=== PATIENT | male | born 1950 | race Native Hawaiian/Other Pacific Islander ===

== ENCOUNTER 2016-12-02 06:36 | Outpatient (CLI) | payer OTHER, MEDICARE ==
[~2016-12-02 06:36] MED LIST: BENZONATATE200 MG PO; DIAZ5TAB20 PO; GABA300C2 PO; IBUP800T30 PO; KETOROLAC15 MG/ML IJ; LUNESTA3 MG OR; MEDROL DOSEPAK4 MG OR; [UNRECOGNIZED DRUG - CODE] PO
[2016-12-02 07:46] LABS: POTASSIUM 3.9 mmol/L (3.6-5.2)
== END 2016-12-02 19:00 | disposition home or self-care (01) ==
LOC: LABW 06:36
PROVIDERS: Internal Medicine
DX: N18.3 Chronic kidney disease, stage 3 (moderate) (principal)
CPT/HCPCS: 36415; 80069

== ENCOUNTER 2016-12-13 13:52 | Outpatient (CLI) | payer OTHER, MEDICARE | END 2016-12-13 19:05 | disposition home or self-care (01) | LOC: RAD 13:52 | DX: M25.552 Pain in left hip (principal); M25.551 Pain in right hip ==

== ENCOUNTER 2017-09-13 08:05 | Outpatient (CLI) | payer OTHER, MEDICARE ==
[2017-09-13 08:39] LABS: PLATELET COUNT 183 K/uL (142-355)
[2017-09-13 08:49] LABS: POTASSIUM 4.1 mmol/L (3.6-5.2)
== END 2017-09-13 22:09 | disposition home or self-care (01) ==
LOC: LABW 08:05
PROVIDERS: Internal Medicine
DX: Z00.00 Encounter for general adult medical examination without abnormal findings (principal); E78.00 Pure hypercholesterolemia, unspecified; I10 Essential (primary) hypertension; E55.9 Vitamin D deficiency, unspecified; Z12.5 Encounter for screening for malignant neoplasm of prostate
CPT/HCPCS: 36415; 80053; 80061; 82306; 84153; 84439; 84443; 85027

== ENCOUNTER 2017-11-10 22:22 | Emergency (ER) | payer OTHER, MEDICARE ==
[~2017-11-10] VITALS: Ht 177.8 cm; Wt 90.7 kg
[2017-11-10 23:28] LABS: PLATELET COUNT 190 K/uL (142-355)
[2017-11-10 23:35] LABS: POTASSIUM 3.5 mmol/L (3.6-5.2); SODIUM 141 mmol/L (136-145)
[2017-11-11 00:07] LABS: PARTIAL THROMBOPLASTIN TIME 25.6 SECONDS (24.5-33.6)
[2017-11-11 00:40] VITALS: BP 114/73; TEMP 98.6
== END 2017-11-11 00:40 | disposition home or self-care (01) ==
LOC: ED 22:22
DX: I10 Essential (primary) hypertension (principal); R10.13 Epigastric pain; Z98.890 Other specified postprocedural states
CPT/HCPCS: 36415; 74022; 80053; 82550; 82553; 84484; 85027; 85610; 85730; 93005; 99284

== ENCOUNTER 2018-01-11 09:54 | Outpatient (CLI) | payer OTHER, MEDICARE | END 2018-01-11 19:23 | disposition home or self-care (01) | LOC: RESP 09:54 | DX: R00.2 Palpitations (principal); R55 Syncope and collapse | CPT/HCPCS: 93225 ==

== ENCOUNTER 2018-04-13 10:11 | Outpatient (CLI) | payer OTHER, MEDICARE | END 2018-04-13 22:22 | disposition home or self-care (01) | LOC: RAD 10:11 | DX: M25.561 Pain in right knee (principal) ==

== ENCOUNTER 2019-02-22 08:44 | Outpatient (CLI) | payer OTHER, MEDICARE ==
[2019-02-22 09:46] LABS: PLATELET COUNT 176 K/uL (142-355)
[2019-02-22 10:50] LABS: POTASSIUM 4.5 mmol/L (3.6-5.2)
== END 2019-02-22 16:00 | disposition home or self-care (01) ==
LOC: LABW 08:44
PROVIDERS: Internal Medicine
DX: Z00.00 Encounter for general adult medical examination without abnormal findings (principal); I10 Essential (primary) hypertension; E78.00 Pure hypercholesterolemia, unspecified; Z12.5 Encounter for screening for malignant neoplasm of prostate; N40.0 Benign prostatic hyperplasia without lower urinary tract symptoms
CPT/HCPCS: 36415; 80053; 80061; 81000; 84153; 84439; 84443; 85027

== ENCOUNTER 2020-04-08 12:36 | Outpatient (CLI) | payer OTHER, MEDICARE | END 2020-04-08 19:40 | disposition home or self-care (01) | LOC: INF 12:36 | PROVIDERS: ATTEND Internal Medicine Endocrinology, Diabetes & Metabolism | DX: Z23 Encounter for immunization (principal) | CPT/HCPCS: 96372 ==

== ENCOUNTER 2020-05-05 09:28 | Outpatient (CLI) | payer OTHER, MEDICARE | END 2020-05-05 21:47 | disposition home or self-care (01) | LOC: INF 09:28 | PROVIDERS: ATTEND Internal Medicine | DX: Z23 Encounter for immunization (principal) | CPT/HCPCS: 96372 ==

== ENCOUNTER 2020-10-06 14:34 | Outpatient (CLI) | payer OTHER, MEDICARE | END 2020-10-06 22:16 | disposition home or self-care (01) | LOC: LAB 14:34 | PROVIDERS: ATTEND Internal Medicine | DX: Z20.822 Contact with and (suspected) exposure to COVID-19 (principal) | CPT/HCPCS: 87635; G2023; U0003 ==

== ENCOUNTER 2020-10-09 12:16 | Outpatient (CLI) | payer OTHER, MEDICARE ==
[~2020-10-09] VITALS: Ht 177.8 cm; Wt 90.7 kg
== END 2020-10-09 22:02 | disposition home or self-care (01) ==
LOC: INF 12:16
PROVIDERS: ATTEND Family Medicine
DX: Z23 Encounter for immunization (principal); U07.1 COVID-19
CPT/HCPCS: 96365; M0244

== ENCOUNTER 2021-05-18 17:05 | Outpatient (CLI) | payer OTHER, MEDICARE ==
[2021-05-18 18:03] LABS: PLATELET COUNT 179 K/uL (142-355)
[2021-05-18 18:42] LABS: POTASSIUM 4.1 mmol/L (3.6-5.2)
== END 2021-05-18 19:18 | disposition home or self-care (01) ==
LOC: LAB 17:05
PROVIDERS: ATTEND Internal Medicine
DX: E78.00 Pure hypercholesterolemia, unspecified (principal); I10 Essential (primary) hypertension
CPT/HCPCS: 80053; 80061; 84439; 84443; 85027